=== PATIENT | female | born 1965 | race Caucasian/White ===

== ENCOUNTER 2025-05-12 14:43 | Outpatient (AMB) | payer OTHER, SELFPAY ==
--- NOTE | 2025-05-12 14:45 | AM.OFFWIN_ITS ---
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 Is last menstrual period known: No Post menopausal: Yes Patient : No Allergies aspirin Allergy (Severe, Verified 05/12/25 14:50) Hives Sulfa (Sulfonamide Antibiotics) Allergy (Severe, Verified 05/12/25 14:50) Anaphylaxis Medication List - Last Reconciled 05/12/25 by Robyn Klein PA-C cephalexin 500 mg PO Q6H mupirocin 2% 1 appl topical TID Do you need a note to return to daycare/school/sports/work: No HPI HPI Comments History of Present Illness Details History of Present Illness - The patient is a 59-year-old female pr esenting with pain and discoloration of the finger due to suspected paronychia. - The issue began a few days ago when a piece of nail was poking into the skin, causing discomfort and mild bleeding. - The patient attempted to manage the co ndition by filing the nail and applying topical antibiotics. - Despite these measures, the patient ex perienced increased pain and discoloration, suggesting possible infection. - There was no significant discharge or pus from the finger. - She denies fever, chills, numbness, ti ngling, streaking, discharge or bleeding. Physical Exam General: Cooperative, healthy appearing, comfortable, no acute distress and well developed Respiratory: Normal respiratory effort and able to speak in complete sentences. Clear to auscultation bilaterally Cardiovascular: Regular rate and rhythm. Normal S1 and S2 Skin: No rashes or lesions noted. Neuro: Sensation is intact. Extremities: Erythema and swelling noted to the right 2nd lateral nail fold with slight fluctuance noted. No TTP of the finger. Cap refill is less than 3 secs. FROM of the right hand digits. 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 Patient was informed and verbally consented to the use of an ambient scribe for clinic note documentation during this visit. PFSH Social History Patient Tobacco Use Status: Former Tobacco user Patient : No Review of Systems Const All systems reviewed & are unremarkable except as noted in HPI and below Physical Exam Vital Signs: Last Vital Signs Temp 98.0 F 05/12/25 14:46 Pulse 88 05/12/25 14:46 BP 132/80 05/12/25 14:46 Pulse Ox 97 05/12/25 14:46 Oxygen Delivery Method Room Air 05/12/25 14:46 BMI result Body Mass Index 43.4 Office Procedures I&D Drain Details: distal lateral nailfold of the right 2nd digit with erythema and swelling. Used an 18 guage needle and scant amt of pus and blood was expressed. Cleaned with alcohol and normal saline. Bandaid applied. Procedure was well tolerated. [place] complications. [id number] Drain Abscess on Finger, simple All charges added?: Procedure code (CPT) selection complete Assessment & Plan Assessment & Plan (1) Paronychia of finger: Code(s): L03.019 - Cellulitis of unspecified finger Qualifiers: Laterality: right Qualified Code(s): L03.011 - Cellulitis of right finger Plan Most likely paronychia vs cellulitis Needle I&D done in the office today Plan - Recommend soaking the affected finger in Epsom salt or hot water with table salt to promote drainage. - Prescribe antibiotics for 7 days to address the infection. - Bactroban ointment TID to the area for 7 days - tylenol as needed for pain - Advise monitoring for any increase in symptoms or lack of improvement, and to follow up if necessary. - follow up with PCP Orders: Orders AMB Incision & Drainage Today L03.019 - Cellulitis of unspecified finger Medications: New cephalexin 500 mg PO Q6H 28 caps 0RF mupirocin 2% 1 appl topical TID 22 grams 0RF Coding Level of Care Code Est Pt Level 4 (18897) Diagnoses Paronychia of finger of right hand L03.011 Laterality: right CPT Codes I&D Drain - DRAIN 8: [id number] Drain Abscess on Finger, simple ([id number])
--- OUTSIDE RECORDS SUMMARY | 2025-05-12 14:45 | XMS_ITS ---
Author Name [facility] Organization Unknown Care Team Organization Name Specialty Phone Email Start Date End Da te [facility] AURELIA JONAS Primary Care 04/16/2023 05/30/20 24
--- OUTSIDE RECORDS SUMMARY | 2025-05-12 14:45 | XMS_ITS | Clinical Summary ---
Author Organization [address] [facility] Address [address] [place] [address] Phone Care Team Providers Care Travel Cota Name Role Phone Venkat Sosa MD Primary Care Provider [phone] Allergies Active Allergy Reactions Criticality Noted Date Comments Penicillins 04/10/2025 Sulfa (Sulfonamide Antibiotics) 03/14 Medications No known medications Encounters Date Type Department Care Team Description 04/13/2025 Telephone Gastroenterology [facility] [address] [place] [address] Kenya Talbot MD Special Procedure 04/10/2025 11:15 AM EDT Office Visit Internal Medicine - [place] [address] [address] Venkat Sosa MD Overweight (Primary Dx); Screening for colon cancer; History of diabetes mellitus from Last 3 Months Social History Tobacco Use Types Packs/Day Years Used Date Smoking Tobacco: Never Assessed Comments Unknown Sex and Gender Information Value Date Recorded Sex Assigned at Not on file Legal Sex Female 4:16 AM EST Gender Identity Not on file Sexual Orientation Not on file Last Filed Vital Signs Vital Sign Reading Time Taken Comments Blood Pressure 138/80 04/10/2025 11:04 AM EDT Pulse 57 04/10/2025 11:04 AM EDT Temperature 35.8 C (96.4 F) 04/10/2025 11:04 AM EDT Respiratory Rate - - Oxygen Saturation 99% 04/10/2025 11:04 AM EDT Inhaled Oxygen Concentration - - Weight 103 kg (227 lb 6.4 oz) 04/10/2025 11:04 A M EDT Height 157.5 cm (5' 2 ) 04/10/2025 11:04 AM EDT Body Mass Index 41.59 04/10/2025 11:04 AM EDT Plan of Treatment Upcoming Encounters Date Type Department Care Team (Late st Contact Info) Description 07/21/2025 11:00 AM EDT Appointment [facility] [address] [place] [id number] Kenya Talbot MD [address] [facility] [address] [place] [address] Health Maintenance Due Date Last Done Comments Breast Cancer Screening 1965 DTaP,Tdap,and Td Vaccines (1 - Tdap) 1986 Hepatitis B Vaccines (1 of 3 - 19+ 3-dose series) 1986 Cervical Cancer Screening: P ap Smear 1988 Pneumococcal Vaccine: 50+ Ye ars (1 of 1 - PCV) 2017 Zoster Vaccines (1 of 2) 2017 COVID-19 Vaccine (1 - 2023-2 5 season) 2024 Depression Screening 10/12/2024 Colorectal Cancer Screening: Colonoscopy 12/07/2024 HIV Screening 12/07/2024 Hepatitis C Screening 12/07/2024 Social Influencers of Health Screening 12/07/2024 Influenza Vaccine (#1) 2025 HIB Vaccines Aged Out No longer eligi ble based on patient's age to complete this topic HPV Vaccines Aged Out No longer eligi ble based on patient's age to complete this topic Hepatitis A Vaccines Aged Out No long er eligible based on patient's age to complete this topic IPV Vaccines Aged Out No longer eligi ble based on patient's age to complete this topic MMR Vaccines Aged Out No longer eligi ble based on patient's age to complete this topic Meningococcal ACWY Vaccine Aged Out N o longer eligible based on patient's age to complete this topic Meningococcal B Vaccine Aged Out No l onger eligible based on patient's age to complete this topic RSV Immunization Patients Un zakiya 20 months Aged Out No longer eligible b ased on patient's age to complete this topic Varicella Vaccines Aged Out No longer eligible based on patient's age to complete this topic Insurance * Guarantor: Ty Gaona Account Type Relation to Patient Date of Phone Billing Address Personal/Family Self 1965 [address] [place] [address] [facility] Care Teams Travel Cota Relationship Specialty Start Date End Date Venkat Sosa MD [address] [address] PCP - General Internal Medicine 02/10/25
[2025-05-12 14:46] VITALS: BP 132/80; PULSE 88; TEMP 36.7; O2SAT 97; BMI 43.4
== END 2025-05-12 16:01 | disposition home or self-care (01) ==
PROVIDERS: Visit Provider Physician Assistant Medical
DX: L03.011 Cellulitis of right finger (principal)
CPT/HCPCS: 26010

== ENCOUNTER → 2025-05-12 14:43 | Outpatient (BNVA) | payer OTHER, SELFPAY | PROVIDERS: Visit Provider Physician Assistant Medical | DX: L03.011 Cellulitis of right finger (principal) | CPT/HCPCS: 10160; 99212 ==